=== PATIENT | male | born 1965 | race African-American/Black ===

== ENCOUNTER 2016-12-19 12:28 | Emergency (ER) | payer MEDICAID ==
--- NOTE | 2016-12-19 13:44 | EDPHY ---
H & P Time Seen by Provider: 12/19/16 13:35 HPI/ROS: Chief complaint. Foreign body in ear HPI. 51-year-old male presents to the emergency department with tissue that has been in the left ear for 3 months or longer. Originally he put it in there for apparently noise reduction. He has been using a paper clip to try to remove it. He has some pain in the left ear but no bleeding. Decreased hearing left ear. Otherwise not ill ROS Constitutional. no fever/chills, no weakness Eyes. no problems with vision ENT. Left ear foreign body with decreased hearing Cardiovascular. no chest pain Respiratory. no shortness of breath, no cough Abdominal. no abdominal pain, no nausea/vomiting, no diarrhea . no problems urinating MS. no calf pain/swelling, no neck/back pain, no joint pain Skin. no rash Lymph. no swollen glands Neuro. no headache, no dizziness, no difficulty walking or with speech Past Medical/Surgical History: Past medical history asthma Social History: Single, every day smoker, no alcohol Smoking Status: Current every day smoker Physical Exam: General Appearance: Alert well-developed male mild distress vital signs are stable Eyes: Pupils equal and round no pallor or injection. ENT, foreign body left ear canal obscuring the tympanic membrane. No bleeding. Right tympanic membrane is normal Respiratory: There are no retractions, lungs are clear to auscultation. Cardiovascular: Regular rate and rhythm. Gastrointestinal: Abdomen is soft and nontender, no masses, bowel sounds normal. Neurological: Awake and alert, sensory and motor exams grossly normal. Skin: Warm and dry, no rashes. Musculoskeletal: Neck is supple nontender. Extremities symmetrical, full range of motion. Psychiatric: Patient is oriented X 3, there is no agitation. Constitutional: Initial Vital Signs Temperature (C) 36.7 C 12/19/16 12:59 Heart Rate 73 12/19/16 12:59 Respiratory Rate 16 12/19/16 12:59 Blood Pressure 113/79 12/19/16 12:59 O2 Sat (%) 100 12/19/16 12:59 O2 Delivery Mode Room Air Allergies/Adverse Reactions: No Known Allergies Allergy (Unverified 12/19/16 12:59) Home Medications: Medication Instructions Recorded NK [No Known Home Meds] 12/19/16 Medical Decision Making Procedures: Ear irrigation--foreign body is removed with irrigation. Post irrigation inspection I can see the eardrum which appears to be intact. There is some residual wax but no longer any foreign body ED Course/Re-evaluation: Patient and I discussed treatment plan including criteria for return importance of follow-up further evaluation. He expresses understanding and agreement Differential Diagnosis: I considered otitis media, perforated TM, retained foreign body - Data Points Medications Given: Discontinued Medications Carbamide Peroxide (Debrox) 5 drop EACHEAR EDNOW ONE Stop: 12/19/16 14:00 Last Admin: 12/19/16 14:00 Dose: 5 drops Departure - Departure Disposition: Home, Routine, Self-Care Clinical Impression: Foreign body in left ear Qualifiers: Encounter type: initial encounter Qualified Code(s): T16.2XXA - Foreign body in left ear, initial encounter Condition: Good Instructions: Ear Foreign Body (ED) Additional Instructions: Continue to irrigate both ears when you take shower. Return for worsening pain , fever. Recheck in 2-3 days for any continuing symptoms Referrals: NONE *PRIMARY CARE P,. [Primary Care Provider] - As per Instructions [facility] [Outside] - 2-3 days, if not improved
[2016-12-19] MEDS ORDERED: CARBAMIDE PEROXIDE 15 ML BOTTLE EACHEAR ONE (13:59)
[2016-12-19] MEDS ORDERED: HYDROGEN PEROXIDE 236 ML BOTTLE TP ONE (14:16)
[2016-12-19 15:49] VITALS: BP 150/101; PULSE 75; RESP 18; TEMP 98.2; O2SAT 96
== END 2016-12-19 15:48 | disposition home or self-care (01) ==
DX: T16.2XXA Foreign body in left ear, initial encounter (principal); J45.909 Unspecified asthma, uncomplicated; F17.200 Nicotine dependence, unspecified, uncomplicated; X58.XXXA Exposure to other specified factors, initial encounter

== ENCOUNTER 2017-01-17 00:39 | Emergency (ER) | payer MEDICAID ==
[2017-01-17 01:04] VITALS: RESP 16; TEMP 97.7
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
[2017-01-17 01:41] VITALS: BP 120/97; PULSE 82; O2SAT 97
== END 2017-01-17 01:47 | disposition home or self-care (01) ==
LOC: EDUNIT#
DX: S00.81XA Abrasion of other part of head, initial encounter (principal); F15.10 Other stimulant abuse, uncomplicated; R41.82 Altered mental status, unspecified; J45.909 Unspecified asthma, uncomplicated; F17.200 Nicotine dependence, unspecified, uncomplicated; Z02.89 Encounter for other administrative examinations; W22.8XXA Striking against or struck by other objects, initial encounter